=== PATIENT | male | born 1975 | race African-American/Black ===

== ENCOUNTER 2019-07-19 16:21 | Emergency (ER) | payer MEDICAID ==
[~2019-07-19] VITALS: Ht 180.3 cm; Wt 93.0 kg
--- NOTE | 2019-07-19 16:32 | NUR ---
PT BIB [facility], PER EMS REPORT PT "UNABLE TO CARE FOR SELF" APPEARS TO BE HOMELESS. PT WITH HX SCHIZ, NO SI/HI. WHEN ASKING PT WHY THEY CAME TO THE HOSPITAL THE PT STATES "I NEED HELP GETTING HOME" PT DENIES SOB/COUGH/BODY ACHES
--- NOTE | 2019-07-19 17:08 | NUR ---
SPOKE WITH SHERLYN MARRERO, SHE IS TO CONTACT HOSPITAL PT WAS DISCHARGED FROM 07/16 FOR ADDITIONAL INFORMATION, PT NOT PROVIDING AT THIS TIME
--- NOTE | 2019-07-19 19:25 | NUR ---
REPORT RECEIVED FROM EAGLE ALVAREZ
--- NOTE | 2019-07-19 19:32 | NUR ---
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 PEDRO STATES SHE CALLED THE FACILITY IN [facility], SHE DID NOT RECEIVED A CALL BACK FROM THEM AFTER MULTIPLE ATTEMPTS. PEDRO RECOMMENDS D/C TO LONG TERM IN [facility] WITH VOUCHER
[2019-07-19 19:37] VITALS: BP 113/76
--- NOTE | 2019-07-19 19:54 | NUR ---
Patient/Caregiver given discharge instructions and they have confirmed that they understand the instructions. Patient ambulatory with steady gait.
== END 2019-07-19 19:56 | disposition home or self-care (01) ==
LOC: ED 17:57
DX: F99 Mental disorder, not otherwise specified (principal); Z00.00 Encounter for general adult medical examination without abnormal findings; Z72.9 Problem related to lifestyle, unspecified
CPT/HCPCS: 99283